=== PATIENT | female | born 1960 | race Two or more races ===

== ENCOUNTER → 2024-04-29 | Outpatient (CLI) | payer BC ==
[2024-04-29 18:25] LABS: Basophils # (A) 0.06 X 10*3/uL (0.00-0.10); Basophils % (A) 0.6 %; Eosinophils # (A) 0.08 X 10*3/uL (0.04-0.35); Eosinophils % (A) 0.9 %; HCT 44.3 % (37.2-46.3); HGB 14.7 g/dL (12.0-15.0); Lymphocytes # (A) 4.67 X 10*3/uL (0.90-5.00); Lymphocytes % (A) 50.5 %; MCH 29.7 pg (27.0-32.0); MCHC 33.2 g/dL (32.0-37.0); MCV 89.5 FL (80.0-97.0); Mean Platelet Volume 11.7 FL (9.5-12.2); Monocytes % (A) 5.4 %; NRBC Per 100 WBC 0 X 10*3/uL (0.00-0.01); Neutrophils % (A) 42.3 %; Platelet Count 293 X 10*3/uL (140-440); RBC 4.95 X 10*6/uL (4.10-5.20); RDW 12.8 % (11.5-14.5); WBC 9.24 X 10*3/uL (4.50-10.00)
[2024-04-29 19:48] LABS: Erythrocyte Sedimentation Rate 18 mm/Hr (0-30)
== END | disposition home or self-care (01) ==
LOC: LABWHC1 13:05
PROVIDERS: ATTEND Ophthalmology
CPT/HCPCS: 36415; 85025; 85652; 86140

== ENCOUNTER → 2024-05-25 | Outpatient (CLI) | payer BC ==
[2024-05-25 09:39] LABS: African American GFR (CKD) >90 (>60 ml/min/1.73 sqM); Blood Urea Nitrogen 16 mg/dL (7-17); Non-African American GFR(CKD) >90 (>60 ml/min/1.73 sqM)
--- NOTE | 2024-05-25 11:31 | CT ---
INDICATION: Unspecified left eye pain and pressure COMPARISON: None TECHNIQUE: Multiple thin slice images were obtained through the orbits before and after the uneventfu l administration 100 mL of Isovue-370 intravenously. Coronal and sagittal reformats were performed. One or more CT dose reduction strategies were utilized during this examination. Total DLP 668 mGycm. FINDINGS: The globes have a normal contour. Orbital ye appear intact. The orbital fat is unremarkable. Ex traocular muscles are within normal limits. No abnormal contrast enhancement. Vascular sclerosis is noted to the internal carotid arteries. Visualized vasculature appears patent. The osseous structures are unremarkable. IMPRESSION: No evidence of orbital irregularity or mass. [facility], , 05/25/2024 11:29 AM
== END | disposition home or self-care (01) ==
LOC: RADCTMAIN 08:44
PROVIDERS: ATTEND Ophthalmology
DX: H57.02 Anisocoria (principal)
CPT/HCPCS: 82565; 84520; 70482; 36415; Q9967